=== PATIENT | male | born 1955 | race Caucasian/White ===

== ENCOUNTER 2017-12-02 06:42 | Day surgery (SDC) | payer MEDICARE, BC ==
[~2017-12-02 06:42] MED LIST: Lactated Ringers 1,000 ML IV SCH
[2017-12-02] MEDS ORDERED: Midazolam 1 MG/ML 2 ML SDV IV ONE (07:50)
[2017-12-02] MEDS ORDERED: Propofol 200 MG/20 ML SDV IV ONE (07:50)
--- NOTE | 2017-12-02 08:36 | PCM.OPNOTE ---
- General Post-Op/Procedure Note Date of Surgery/Procedure: 12/02/17 Operative Procedure(s): c scope with bx hot loop and cold forceps Findings: cecal, ascen. colon, prox, distal descending, sigmoid x6 polyps sigmoid diverticulosis int hemorrhoids Pre Op Diagnosis: hematochezia Post-Op Diagnosis: cecal, ascen. colon, prox, distal descending, sigmoid x6 polyps. sigmoid diverticulosis. int hemorrhoids Anesthesia Technique: MAC Primary Surgeon: Efrain Cardenas Anesthesia Provider: Blake Adan Pathology: cecal, ascen. colon, prox, distal descending, sigmoid x6 polyps Complications: None Condition: Good Free Text/Narrative:: see dictation
--- NOTE | 2017-12-02 08:55 | OR ---
DATE OF OPERATION: 12/02/2017 SURGEON: Efrain Cardenas MD PROCEDURES PERFORMED: Colonoscopy with hot loop and cold forceps biopsy. PREOPERATIVE DIAGNOSIS: Hematochezia. POSTOPERATIVE DIAGNOSES: Diverticulosis, hemorrhoids, and polyps as follows; cecum, ascending colon, proximal descending colon, distal descending colon, and sigmoid colon x6. INDICATIONS FOR PROCEDURE: This is a 62-year-old white male who was referred with the above-mentioned history. He was offered and accepted colonoscopy. He had never had one before. DESCRIPTION OF PROCEDURE: After an excellent IV sedation was administered, digital rectal exam was performed. No marked abnormality was noted. The flexible colonoscope was inserted and advanced without difficulty to the cecum. The prep was excellent. The following findings were noted. In the cecum, polyp biopsied with the hot loop snare, retrieved and submitted in a separate container. Ascending colon, a small polypoid lesion, biopsied with cold biopsy forceps. The transverse colon was unremarkable. In the descending colon, in the proximal and distal descending colon, 2 polyps were encountered. These were biopsied with cold biopsy forceps and submitted in separate containers. In the sigmoid, there was some evidence of diverticulosis. Several polyps were noted. These varied in size from 2 cm down to 0.5 mm. A total of 6 were removed with a combination of hot loop snare and cold forceps. These were submitted in one container. The rectum was unremarkable. On retroflexing the scope, there was some evidence of some internal hemorrhoids. Colon was deflated. Scope was removed. The patient tolerated the procedure well and was taken to recovery room in a good condition. /[id number] /MODL
== END 2017-12-02 09:25 | disposition home or self-care (01) ==
LOC: FB.SDS 06:42 → EDBD 08:00 → FB.SDS 09:25
PROVIDERS: ATTEND Surgery
DX: D12.2 Benign neoplasm of ascending colon (principal); D12.0 Benign neoplasm of cecum; D12.4 Benign neoplasm of descending colon; D12.5 Benign neoplasm of sigmoid colon; K64.8 Other hemorrhoids; K92.1 Melena; I10 Essential (primary) hypertension; E78.5 Hyperlipidemia, unspecified; E87.1 Hypo-osmolality and hyponatremia; Z87.891 Personal history of nicotine dependence; Z79.899 Other long term (current) drug therapy; Z88.8 Allergy status to other drugs, medicaments and biological substances; Z88.6 Allergy status to analgesic agent
CPT/HCPCS: 00145; 45380; 45385; 88305; J2250; J2704; J7120